=== PATIENT | female | born 1975 | race Caucasian/White ===

== ENCOUNTER 2019-01-22 17:51 | Emergency (ER) | payer BC, SELFPAY ==
[2019-01-22] MEDS ORDERED: Metoclopramide HCl 10 MG/2 ML VIAL ONE (18:21)
[2019-01-22] MEDS ORDERED: diphenhydrAMINE 50 MG/ML VIAL ONE (18:21)
[2019-01-22] MEDS ORDERED: Adacel (T-DAP) 0.5 ML SYRINGE ONE (18:21)
--- NOTE | 2019-01-22 18:27 | CT ---
CT Brain WO Con History: [Injury.] Comparison: MRI brain 2009 Findings: No acute hemorrhage or infarct. No midline shift or mass effect. Ventricular size and extra -axial CSF spaces are normal. The calvarium is intact. Paranasal sinuses and mastoids are clear. Impression: No acute intracranial abnormality.
== END 2019-01-22 19:38 | disposition home or self-care (01) ==
LOC: ERS 17:51
DX: S01.01XA Laceration without foreign body of scalp, initial encounter (principal); W20.8XXA Other cause of strike by thrown, projected or falling object, initial encounter
CPT/HCPCS: 70450; 90471; 90715; 96365; 96375; J1200; J2765